=== PATIENT | female | born 1960 | race Two or more races ===

== ENCOUNTER → 2024-07-01 | Outpatient (CLI) | payer BC, SELFPAY ==
--- NOTE | 2024-07-01 10:00 | XR_ITS ---
Examination: [place], hepatobiliary radioisotope scan Gallbladder ejection fraction study. Date and time of exam: July 01, 2024 0958 hours INDICATIONS: Epigastric pain with burning sensation in the abdomen 3 weeks Technique: 5.9 mCi of 99M Hepatolite administered. Serial imaging then obtained from immediate through 60 minutes. 1.8 mcg selective catheter Kinevac administered for gallbladder ejection fraction study. Findings: Radioisotope activity within the liver is reasonably homogenous. Gallbladder, common bile duct small bowel activity noted Impression: Gallbladder activity Abnormal gallbladder ejection fraction, 84%
== END | disposition home or self-care (01) ==
PROVIDERS: PCP Family Medicine; Referring Provider Specialist; Visit Provider Specialist
DX: R93.2 Abnormal findings on diagnostic imaging of liver and biliary tract (principal)
CPT/HCPCS: 78226; A9537; J2805

== ENCOUNTER 2024-10-30 10:08 | Emergency (ER) | payer BC, SELFPAY ==
[2024-10-30 10:16] VITALS: BP 155/92; PULSE 67; RESP 18; TEMP 36.6; O2SAT 97; BMI 31.8
--- NOTE | 2024-10-30 10:22 | EKG_ITS ---
[facility] Test Date: 2024-10-30 Pat Name: HAILEE OCHOA Department: Room: - Gender: Female Documentation Analyst: : 1960 Requested By: Seven Sher Order Number: [id number] Reading MD: Seven Sher Measurements Intervals [place] Rate: 64 P: 54 CO: 158 QRS: 3 QRSD: 82 T: 23 QT: 403 QTc: 418 Interpretive Statements SINUS RHYTHM LOW QRS VOLTAGE IN PRECORDIAL LEADS [QRS DEFLECTION < 1.0 mV IN CHEST LEADS] Compared to ECG 02/22/2021 11:01:47 Low QRS voltage now present /store/S0/[id number]/ecg/[id number].pdf
--- NOTE | 2024-10-30 10:22 | XR_ITS ---
Examination: CT brain head without contrast. 2-D sagittal coronal reconstructions Date and time of exam:October 30, 2024 1028 hours INDICATIONS: Headache dizziness beginning 3 days ago CTDI: vol (mGy):47 DLP: (mGycm):942 Technique: Multiple CT axial sections of the brain have been obtained, 5 mm slice thickness. Contrast has not been administered. 2-D sagittal, coronal reconstructions have been obtained Low dose protocols were performed. One or more of the following dose reduction techniques were used; automated exposure control, adjustment of the mA and/or KV according to patient size, use of iterative reconstruction technique. Findings: No significant ventricular enlargement. Intra-axial or extra-axial hemorrhage density is not seen. No mass effect or midline shift Basal cisterns are not remarkable. Fourth ventricle is midline. Cranial vault intact. Impression: Negative for acute hemorrhage, mass effect or midline shift If symptoms persist, as clinically warranted, consider brain MRI stroke protocol follow-up
--- NOTE | 2024-10-30 10:22 | PD.EDRME ---
Rapid Medical Screening Exam RME Arrival date/time: 10/30/24 10:08 64-year-old female with no known medical history presents to the emergency room with a chief complaint of dizziness, lightheadedness, unbalanced gait x 2 days that has progressively gotten worse this morning. Patient states she was seen by her primary care provider and sent to the emergency room I have greeted and performed a focused initial assessment of this patient. A comprehensive ED assessment and evaluation of the patient, analysis of all test results, and completion of the medical decision making process will be conducted by additional ED providers. Chief Complaint: Dizziness Time Seen by Provider: 10/30/24 10:12 Vital signs: Vital Signs Temperature 97.9 F 10/30/24 10:16 Pulse Rate 67 10/30/24 10:16 Respiratory Rate 18 10/30/24 10:16 Blood Pressure 155/92 H 10/30/24 10:16 Pulse Oximetry (%) 97 10/30/24 10:16 Oxygen Delivery Method Room Air 10/30/24 10:16 Vital signs reviewed by provider: Yes
[2024-10-30] MEDS: MECLIZINE HCL 25 MG TABLET 50 MG PO (10:37)
[2024-10-30 11:34] LABS: Basophils % (Auto) 0 % (0-2.5); Eosinophils % (Auto) 0 % (0-10); Hematocrit 38.4 % (36.0-46.0); Hemoglobin 13.8 g/dL (12.0-16.0); Immature Granulocytes % (Auto) 0 % (0-0); Immature Granulocytes Auto 0.02 Thou/mm3 (0.00-0.00); Lymphocytes # (Auto) 1.3 Thou/mm3 (1.0-4.8); Lymphocytes % (Auto) 22 % (10-50); Mean Corpuscular HGB Conc 35.9 g/dl (31.0-37.0); Mean Corpuscular Hemoglobin 30.7 pg (25.0-35.0); Mean Corpuscular Volume 86 fL (80-100); Monocytes # (Auto) 0.3 Thou/mm3 (0.0-0.8); Monocytes % (Auto) 5 % (0-12); Neutrophils # (Auto) 4.4 Thou/mm3 (1.8-7.7); Neutrophils % (Auto) 73 % (37-80); Nucleated Red Blood Cell % 0 /100 WBC (0); Platelet Count 173 Thou/mm3 (140-440); RDW Standard Deviation 39.1 fL (36.4-46.3); Red Blood Count 4.49 Miln/mm3 (4.00-5.20)
[2024-10-30 11:34] LABS: Collection Type, Urine Clean Catch
[2024-10-30 11:46] LABS: Bilirubin,Urine Negative (Negative); Blood,Urine Trace (Negative); Clarity,Urine Clear (Clear/Hazy); Color,Urine Lt-Yellow (Lt Yel-Yel); Glucose, Urine Negative (Negative); Ketones,Urine Negative (Negative); Leukocyte Esterase,Urine Negative (Negative); Nitrite,Urine Negative (Negative); PH,Urine 6.5 (5.0-7.0); Protein,Urine Negative (Neg - Trace); RBC,Urine 4 /hpf (0-3); Squamous Epithelial Cell,Urine 2 /hpf (0-5); Urobilinogen,Urine Negative mg/dL (0.0-1.0); WBC,Urine 1 /hpf (0-5)
[2024-10-30 11:50] LABS: B-Type Natriuretic Peptide 41 pg/mL (0-100)
[2024-10-30 11:51] LABS: Alanine Aminotransferase 18 U/L (10-49); Albumin, Serum 4.8 gm/dL (3.4-4.8); Albumin/Globulin Ratio 1.5 (1.2-2.2); Alkaline Phosphatase 112 U/L (46-116); Anion Gap 7 (7-16); Aspartate Amino Transferase 23 U/L (0-34); BUN/Creatinine Ratio 20 Ratio (12-20); Bilirubin,Total 0.6 mg/dL (0.3-1.2); Blood Urea Nitrogen 16 mg/dL (9-23); Calcium 9.4 mg/dL (8.3-10.6); Calcium (Corrected) 9.4 mg/dL (8.5-10.1); Carbon Dioxide 26.3 mMol/L (20.0-31.0); Chloride 102 mMol/L (98-107); Creatinine (Component) 0.8 mg/dL (0.6-1.3); Globulin 3.2 gm/dL (2.3-3.5); Glucose 120 mg/dL (74-106); Osmolality,Calculated 272 (275-295); Sodium 135 mMol/L (136-145); Troponin I < 0.020 ng/mL (0.0-0.045); eGFR > 60 See Note
[2024-10-30 14:53] VITALS: BP 145/87; PULSE 65; RESP 16; O2SAT 99
--- NOTE | 2024-10-30 14:59 | PD.EDDIZZY ---
ED Dizzyness RME/HPI General Chief Complaint: Dizziness Stated Complaint: HYPERTENSIVE WITH DIZZINESS; PCP SENT Time Seen by Provider: 10/30/24 10:12 Source: patient Arrival date/time: 10/30/24 10:08 64-year-old female with no known medical history presents to the emergency room with a chief complaint of dizziness, lightheadedness, unbalanced gait x 2 days that has progressively gotten worse this morning. Patient states she was seen by her primary care provider and sent to the emergency room Mode of arrival: ambulatory Limitations: no limitations RME / HPI RME / HPI Narrative: 10/30/24 10:08 64-year-old female with no known medical history presents to the emergency room with a chief complaint of dizziness, lightheadedness, unbalanced gait x 2 days that has progressively gotten worse this morning. Patient states she was seen by her primary care provider and sent to the emergency room I have greeted and performed a focused initial assessment of this patient. A comprehensive ED assessment and evaluation of the patient, analysis of all test results, and completion of the medical decision making process will be conducted by additional ED providers. Related Data Home Medications ?Medication ?Instructions ?Recorded ?Confirmed acetaminophen 500 mg tablet 500 mg PO Q6H PRN Pain 02/22/21 02/22/21 ibuprofen 100 mg tablet See Rx Instructions .Route 02/22/21 02/22/21 .COMPLEX PRN Pain Previous Rx's ?Medication ?Instructions ?Recorded meclizine 25 mg tablet 25 mg PO BID PRN dizziness #14 tabs 10/30/24 Allergies Allergy/AdvReac Type Severity Reaction Status Date / Time No Known Allergies Allergy Verified 10/30/24 10:13 Review of Systems Review of Systems Systems Reviewed: All systems reviewed, normal except as documented Constitutional Constitutional: Reports system reviewed and no additional complaints, except as documented, Denies fatigue, Denies fever(s), Denies headache(s) and Reports weakness Eyes Eyes: Reports system reviewed and no additional complaints, except as documented, Denies blurry vision and Denies change in vision ENT Ears, Nose, Mouth, and Throat: Reports system reviewed and no additional complaints, except as documented, Denies otalgia, Denies headache(s), Denies nasal congestion, Denies throat swelling and Reports vertigo Cardiovascular Cardiovascular: Reports system reviewed and no additional complaints, except as documented, Denies chest pain, Denies dyspnea and Denies dyspnea on exertion Respiratory Respiratory: Reports system reviewed and no additional complaints, except as documented, Denies chest congestion, Denies cough, Denies dyspnea, Denies dyspnea on exertion and Denies wheezing Gastrointestinal Gastrointestinal: Reports system reviewed and no additional complaints, except as documented, Denies abdominal pain, Denies cramping, Denies nausea and Denies vomiting Genitourinary Genitourinary: Reports system reviewed and no additional complaints, except as documented Musculoskeletal Musculoskeletal: Reports system reviewed and no additional complaints, except as documented and Denies back pain Integumentary/Breasts Skin/Breast: Reports system reviewed and no additional complaints, except as documented and Denies wounds Neurologic Neurologic: Reports system reviewed and no additional complaints, except as documented, Denies confusion, Denies headache(s), Denies lack of coordination, Reports vertigo and Reports weakness Psychiatric Psychiatric: Reports system reviewed and no additional complaints, except as documented, Denies anxiety, Denies confusion, Denies depression, Denies paranoia, Denies suicidal ideation and Denies tactile hallucinations Endocrine Endocrine: Reports system reviewed and no additional complaints, except as documented and Denies fatigue Hematologic/Lymphatic Hematologic/Lymphatic: Reports system reviewed and no additional complaints, except as documented and Denies lymphadenopathy Allergic/Immunologic Allergic/Immunologic: Reports system reviewed and no additional complaints, except as documented, Denies throat swelling, Denies urticaria and Denies wheezing Past Medical History Past Medical History NEUROLOGIC: Negative Neurological Disorders or Seizures CARDIAC: Negative Cardiac Disorders or Congestive Heart Failure RESPIRATORY: Negative Chronic Obstructive Pulmonary Disease (COPD) GASTROINTESTINAL: Negative Gastrointestinal Disorders (COLITIS IN THE PAST) or Hepatitis GENITOURINARY: Negative Genitourinary Disorders or Renal Disease REPRODUCTIVE: Positive Previous Pregnancies (x4) MUSCULOSKELETAL: Positive Musculoskeletal Disorders ENDOCRINE: Negative Endocrine Disorders, Diabetes Mellitus Type 1 or Diabetes Mellitus Type 2 HEMATOLOGIC: Negative Blood Disorders OTHER HISTORY: Positive Shingles (2013) and Chicken Pox; Negative Autoimmune Disease, Blood Transfusions, Blood Transfusion Reaction, Anesthesia Reactions, MRSA or Cancer Family History FAMILY HISTORY: Positive Family Cardiac Disorders (FATHER- HTN) and Family Cancer (FATHER- COLON, MOTHER-LUNG); Negative Family Surgery or Family Anesthesia Reaction Surgical History SURGICAL: Positive Tubal Ligation; Negative Cardiac Surgery Social History SMOKING STATUS: Never smoker ED Exam General Limitations: Present no limitations General appearance: Present alert and in no apparent distress Head Head exam: Present atraumatic Eye Eye exam: Present normal appearance, PERRL and EOMI ENT ENT exam: Present normal exam, normal oropharynx and mucous membranes moist Neck Neck exam: Present normal inspection, full ROM and trachea midline Chest Chest inspection: Present normal inspection and symmetric chest wall rise Respiratory Respiratory exam: Present normal lung sounds bilaterally Cardiovascular Cardiovascular exam: Present regular rate, normal rhythm and normal heart sounds Abdominal Exam Abdominal exam: Present soft and normal bowel sounds Extremities Exam Extremities exam: Present normal inspection and full ROM Back Exam Back exam: Present normal inspection and full ROM Neurological Exam Neurological exam: Present alert, oriented X3, CN II-XII intact and reflexes normal Expanded Neurological Exam Patient oriented to: Present person, place and time Speech: Present fluid speech Cranial nerves: Normal: EOM function (II, III, IV, ), facial sensation (V) and facial palsy (VII) Cerebellar function: Present normal gait Motor strength - LUE: 5/5 Motor strength - RUE: 5/5 Motor strength - LLE: 5/5 Motor strength - RLE: 5/5 Coma scale eye opening: spontaneous Coma scale motor response: obeys commands Coma scale verbal response: oriented Coma scale total: 15 Psychiatric Psychiatric exam: Present normal affect and normal mood Skin Skin exam: Present warm, dry, intact and normal color Course Quality Measures none Orders Category Date Time Status EKG (ED ONLY) *Do not use* NOW Care 10/30/24 10:22 Completed Orthostatic Vitals NOW Care 10/30/24 10:[address] head/brain wo con Stat Exams 10/30/24 10:22 Completed EKG (ED Only) Stat Exams 10/30/24 10:22 Draft BNP [B-Type Natriuretic Peptide] Stat Lab 10/30/24 11:11 Completed CBC Stat Lab 10/30/24 11:11 Completed Comprehensive Metabolic Panel Stat Lab 10/30/24 11:11 Completed Troponin I Stat Lab 10/30/24 11:11 Completed Urinalysis Stat Lab 10/30/24 11:00 Completed Urine Culture Stat Lab 10/30/24 11:00 Received Meclizine HCl [Antivert] Med 10/30/24 10:22 Discontinued 50 mg PO X1 ONE Vital Signs Vital signs: Vital Signs Temperature 97.9 F 10/30/24 10:16 Pulse Rate 67 10/30/24 10:16 Respiratory Rate 18 10/30/24 10:16 Blood Pressure 155/92 H 10/30/24 10:16 Pulse Oximetry (%) 97 10/30/24 10:16 Oxygen Delivery Method Room Air 10/30/24 10:16 O2 saturation 97% within normal limits Procedures -ED EKG Interpretation #1: Date of EK10/30/24 Rate: 64 Interpretation: Reviewed by me EKG Impression: Normal sinus rhythm Dizziness MDM Narrative MDM Narrative:: 64-year-old female with no known medical history presents to the emergency room with a chief complaint of dizziness, lightheadedness, unbalanced gait x 2 days that has progressively gotten worse this morning. Patient states she was seen by her primary care provider and sent to the emergency room Patient is hemodynamically stable. BP is 145/87 she is not tachypneic not tachycardic and afebrile Physical examination shows a normal neurological exam. Pupils are PERRLA EOMs are intact the patient is a GCS of 15 she is alert and oriented x 3. Patient states she is having dizziness and lightheadedness that is worse with sudden positional changes. Patient is also having some nausea. Patient was given some meclizine and reevaluated in 1 hour with significant improvement of her symptoms. CBC CMP are within normal limit CT of the head and brain was negative for any acute findings Patient was discharged and educated to follow-up with primary care provider in the next 24 to 48 hours and return to the emergency room for any evidence of worsening signs or symptoms Patient data External records reviewed:: [facility] previous records Clinical information provided by:: patient Social determinants that could affect healthcare access:: none Patient has the following chronic illnesses:: Hypertension How is presenting disease/condition affected by chronic disease/condition?: exacerbated by Evaluation data The following diagnostics were reviewed and interpreted by me:: lab results and radiology exam(s) Lab and/or radiology exams considered but not ordered:: Labs and radiology exams considered and ordered Interpretation Summary: CT of the head and brain-Findings: No significant ventricular enlargement. Intra-axial or extra-axial hemorrhage density is not seen. No mass effect or midline shift Basal cisterns are not remarkable. Fourth ventricle is midline. Cranial vault intact. Impression: Negative for acute hemorrhage, mass effect or midline shift If symptoms persist, as clinically warranted, consider brain MRI stroke protocol follow-up Medications / Prescriptions Medications or Prescriptions considered but not ordered:: Medication given Medication administrations:: Medication Administration History Discontinued Medications Meclizine HCl (Meclizine Hcl 25 Mg Tablet) 50 mg PO X1 ONE Stop: 10/30/24 10:23 Last Admin: 10/30/24 10:37 Dose: 50 mg Documented By: OA Medication given Consultations Consultation(s) initiated? (list below): No Diagnosis Dizziness Differential Diagnosis: benign paroxysmal positional vertigo, orthostatic hypotension, cerebrovascular accident and transient cerebral ischemia Most likely diagnosis given after review of the tests above:: Vertigo Admission Indicated Admission indicated?: not indicated Admission Request Was there a request for admission?: No Disposition Plan Disposition Plan: Discharge Discharge Attestation Discharge Attestation: The patient and all family members were given an opportunity to ask questions and understood the discharge instructions. Discharge instructions specifically effects, indications for sooner follow up or return to the emergency department, and the expected course of current diagnosis. Patient condition: Stable Discharge Plan Plan Patient Disposition: HOME (Self Care) Discharge Disposition comment: Stable Prescriptions/Referrals Prescriptions/Med Rec: New meclizine 25 mg tablet 25 mg PO BID PRN (Reason: dizziness) Qty: 14 0RF No Action acetaminophen 500 mg Tablet 500 mg PO Q6H PRN (Reason: Pain) ibuprofen 100 mg Tablet See Rx Instructions .ROUTE .COMPLEX PRN (Reason: Pain) Rx Instructions: 500 MG PO ONCE A DAY NEEDED FOR PAIN Referrals: Janny Serrano PA-C [Primary Care Provider] - In 1 week Problem List Clinical Impression: Benign paroxysmal positional vertigo Patient/Caregiver Discharge Instructions Education Materials: BPPV, ED BPV Vertigo Additional Instructions: Por favor, consulte con hurt m?dico de cabecera en las pr?ximas 24 a 48 horas. Se le realiz? pat tomograf?a computarizada de cr?paco y cerebro, la cual result? negativa para cualquier hallazgo margarita. Hurt an?lisis de jasmyn tambi?n result? negativo para cualquier hallazgo margarita. Hurt examen card?aco se encontr? dentro de los l?mites normales. Se envi? el medicamento a hurt farmacia; rec?jalo y t?rodriguez seg?n lo indicado. Si observa cualquier signo de empeoramiento de los signos o s?ntomas, acuda a urgencias de inmediato. Print Language: Yi Stand Alone Forms: Marcelle Award Info., Patient Portal Info Letter PA/HADOOP JAVA DEVELOPER Supervising Physician PA/HADOOP JAVA DEVELOPER Supervising Physician: Dr. Croft
== END 2024-10-30 15:01 | disposition home or self-care (01) ==
PROVIDERS: Nurse Practitioner Family; Emergency Provider Family Medicine; PCP Physician Assistant Medical
DX: H81.10 Benign paroxysmal vertigo, unspecified ear (principal); R94.31 Abnormal electrocardiogram [ECG] [EKG]; I10 Essential (primary) hypertension
CPT/HCPCS: 36415; 70450; 80053; 81001; 83880; 84484; 85025; 87086; 93005; 99284; A9270

== ENCOUNTER → 2024-12-08 | Outpatient (CLI) | payer BC, SELFPAY ==
[2024-12-08 17:46] LABS: Basophils % (Auto) 0 % (0-2.5); Eosinophils # (Auto) 0.1 Thou/mm3 (0.0-0.5); Eosinophils % (Auto) 2 % (0-10); Hematocrit 36.3 % (36.0-46.0); Hemoglobin 12.9 g/dL (12.0-16.0); Immature Granulocytes % (Auto) 0 % (0-0); Immature Granulocytes Auto 0.02 Thou/mm3 (0.00-0.00); Lymphocytes # (Auto) 2.4 Thou/mm3 (1.0-4.8); Lymphocytes % (Auto) 40 % (10-50); Mean Corpuscular HGB Conc 35.5 g/dl (31.0-37.0); Mean Corpuscular Hemoglobin 31.4 pg (25.0-35.0); Mean Corpuscular Volume 88 fL (80-100); Monocytes # (Auto) 0.5 Thou/mm3 (0.0-0.8); Monocytes % (Auto) 8 % (0-12); Neutrophils % (Auto) 49 % (37-80); Nucleated Red Blood Cell % 0 /100 WBC (0); Platelet Count 185 Thou/mm3 (140-440); RDW Standard Deviation 41.3 fL (36.4-46.3); Red Blood Count 4.11 Miln/mm3 (4.00-5.20)
[2024-12-08 18:02] LABS: Glucose Estimated Average 111 mg/dL (80-131); Hemoglobin A1C 5.5 % Hgb (4.8-6.0)
[2024-12-08 18:05] LABS: Alanine Aminotransferase 21 U/L (10-49); Albumin, Serum 4.3 gm/dL (3.4-4.8); Albumin/Globulin Ratio 1.6 (1.2-2.2); Alkaline Phosphatase 116 U/L (46-116); Anion Gap 10 (7-16); Aspartate Amino Transferase 23 U/L (0-34); BUN/Creatinine Ratio 23 Ratio (12-20); Bilirubin,Total 0.2 mg/dL (0.3-1.2); Blood Urea Nitrogen 23 mg/dL (9-23); Carbon Dioxide 26.9 mMol/L (20.0-31.0); Chloride 105 mMol/L (98-107); Globulin 2.7 gm/dL (2.3-3.5); Glucose 106 mg/dL (74-106); Osmolality,Calculated 286 (275-295); Potassium 4.1 mMol/L (3.4-5.1); Sodium 142 mMol/L (136-145); eGFR > 60 See Note
== END | disposition home or self-care (01) ==
LOC: COPL 16:02
PROVIDERS: PCP Physician Assistant Medical; Referring Provider Specialist; Visit Provider Specialist
DX: Z01.812 Encounter for preprocedural laboratory examination (principal); L72.0 Epidermal cyst
CPT/HCPCS: 36415; 80053; 83036; 85025